=== PATIENT | female | born 2000 | race Caucasian/White ===

== ENCOUNTER 2022-07-16 21:56 | Emergency (ER) | payer SELFPAY ==
[~2022-07-16] VITALS: Ht 160 cm; Wt 80.7 kg
[2022-07-16] MEDS ORDERED: CELEXA10 MG PO (22:07)
[2022-07-16 23:49] LABS: BILIRUBIN Negative (Negative); BLOOD 2+ (Negative); CLARITY Clear (Clear); COLOR Yellow (Yellow); GLUCOSE Negative (Negative); KETONE Negative (Negative); LEUKO ESTERASE Negative (Negative); NITRITE Negative (Negative); SPECIFIC GRAVITY 1.025 (1.001-1.030)
[2022-07-16 23:51] LABS: BASO # 0.1 10*3/uL (0.0-0.1); BASO % 0.6 % (0.0-1.0); EOS # 0.4 10*3/uL (0.0-0.4); EOS % 3.5 % (1.0-4.0); HEMATOCRIT 39.5 % (37.0-47.0); LYMPH # 3.2 10*3/uL (1.3-4.4); LYMPH % 31.3 % (27.0-41.0); MEAN CELL VOLUME 77.8 fl (81.0-99.0); MEAN CORPUSCULAR HGB 24.4 pg (27.0-31.0); MEAN CORPUSCULAR HGB CONC 31.4 g/dl (33.0-37.0); MONO # 0.7 10*3/uL (0.1-1.0); MONO % 6.6 % (3.0-9.0); NEUT % 57.7 % (47.0-73.0); PLATELET COUNT AUTOMATED 266 10*3/uL (130-400); RED BLOOD COUNT 5.08 10*6/uL (4.10-5.10); RED CELL DISTRI WIDTH 15.2 % (0-14.5); WHITE BLOOD COUNT 10.3 10*3/uL (4.8-10.8)
[2022-07-17 00:02] LABS: BACTERIA 1+; MUCOUS 2+
[2022-07-17 00:06] LABS: ALKALINE PHOSPHATASE 76 U/L (45-117); BUN 15 mg/dl (7-24); CHLORIDE 104 mmol/L (98-107); CREATININE 0.75 mg/dL (0.55-1.02); POTASSIUM 3.8 mmol/L (3.5-5.1); SGOT/AST 11 IU/L (3-35); SGPT/ALT 15 U/L (12-78); SODIUM 135 mmol/L (136-145); TOTAL PROTEIN 7.7 gm/dL (6.4-8.2)
== END 2022-07-17 01:33 | disposition home or self-care (01) ==
LOC: ED 21:56
PROVIDERS: Emergency Medicine
DX: R00.0 Tachycardia, unspecified (principal); R51.9 Headache, unspecified; R00.2 Palpitations; Z91.040 Latex allergy status; Z79.899 Other long term (current) drug therapy

== ENCOUNTER 2022-08-26 13:20 | Emergency (ER) | payer SELFPAY ==
[~2022-08-26] VITALS: Ht 157.4 cm; Wt 81.6 kg
[~2022-08-26 13:20] MED LIST: CELEXA10 MG PO
== END 2022-08-26 15:14 | disposition home or self-care (01) ==
LOC: ED 13:20
DX: B34.9 Viral infection, unspecified (principal); Z20.822 Contact with and (suspected) exposure to COVID-19; Z79.899 Other long term (current) drug therapy

== ENCOUNTER 2022-10-21 20:29 | Emergency (ER) | payer SELFPAY ==
[~2022-10-21] VITALS: Ht 172.7 cm; Wt 77.1 kg
== END 2022-10-21 22:47 | disposition home or self-care (01) ==
LOC: ED 20:29
DX: L53.9 Erythematous condition, unspecified (principal); T78.1XXA Other adverse food reactions, not elsewhere classified, initial encounter; X58.XXXA Exposure to other specified factors, initial encounter; F41.9 Anxiety disorder, unspecified

== ENCOUNTER 2022-10-22 22:33 | Inpatient (IN) | payer SELFPAY ==
[~2022-10-22] VITALS: Ht 157.4 cm; Wt 82.6 kg
[2022-10-22 22:49] VITALS: BP 139/86
[2022-10-22 23:40] LABS: BASO # 0.1 10*3/uL (0.0-0.1); BASO % 0.5 % (0.0-1.0); EOS # 0.1 10*3/uL (0.0-0.4); EOS % 0.4 % (1.0-4.0); HEMATOCRIT 39.6 % (37.0-47.0); LYMPH # 4.4 10*3/uL (1.3-4.4); LYMPH % 30.7 % (27.0-41.0); MEAN CELL VOLUME 78.1 fl (81.0-99.0); MEAN CORPUSCULAR HGB 24.1 pg (27.0-31.0); MEAN CORPUSCULAR HGB CONC 30.8 g/dl (33.0-37.0); MEAN PLATELET VOLUME 12.4 fl (9.6-12.3); MONO # 1.1 10*3/uL (0.1-1.0); MONO % 7.8 % (3.0-9.0); NEUT # 8.5 10*3/uL (2.3-7.9); NEUT % 60.3 % (47.0-73.0); PLATELET COUNT AUTOMATED 282 10*3/uL (130-400); RED BLOOD COUNT 5.07 10*6/uL (4.10-5.10); WHITE BLOOD COUNT 14.2 10*3/uL (4.8-10.8)
[2022-10-22 23:54] LABS: ALKALINE PHOSPHATASE 66 U/L (46-116); BUN 16 mg/dl (9-23); CHLORIDE 105 mmol/L (98-107); POTASSIUM 3.5 mmol/L (3.4-5.1); SGPT/ALT 12 U/L (10-49); TOTAL PROTEIN 7.4 gm/dL (6.0-8.0)
[2022-10-23] VITALS (8 sets, daily range): BP systolic 113–150; BP diastolic 68–88
[2022-10-23 06:50] LABS: BILIRUBIN Negative (Negative); BLOOD Negative (Negative); CLARITY Clear (Clear); COLOR Yellow (Yellow); GLUCOSE Negative (Negative); KETONE Negative (Negative); LEUKO ESTERASE Negative (Negative); NITRITE Negative (Negative); SPECIFIC GRAVITY >= 1.030 (1.001-1.030); UROBILINOGEN 0.2 E.U./dl (0.0-1.0)
[2022-10-24] VITALS: BP 122/72
[2022-10-24 05:34] LABS: BUN 13 mg/dl (9-23); CHLORIDE 107 mmol/L (98-107); CHOLESTEROL 180 mg/dL (<200); FREE T4 1.11 ng/dl (0.89-1.76); LDL CHOLESTEROL 114 mg/dL (9-159); POTASSIUM 4.2 mmol/L (3.4-5.1); THYROID STIM HORMONE (HS) 0.391 uIU/ml (0.550-4.780); TRIGLYCERIDES 58 mg/dl (<150)
[2022-10-24 06:34] LABS: HEMATOCRIT 39.5 % (37.0-47.0); MEAN CORPUSCULAR HGB 24.3 pg (27.0-31.0); MEAN CORPUSCULAR HGB CONC 30.4 g/dl (33.0-37.0); PLATELET COUNT AUTOMATED 264 10*3/uL (130-400); RED BLOOD COUNT 4.94 10*6/uL (4.10-5.10); RED CELL DISTRI WIDTH 15.1 % (0-14.5); WHITE BLOOD COUNT 11.5 10*3/uL (4.8-10.8)
[2022-10-24 06:35] LABS: BASO % 0.1 % (0.0-1.0); LYMPH # 1.5 10*3/uL (1.3-4.4); LYMPH % 13.2 % (27.0-41.0); MEAN PLATELET VOLUME 13.9 fl (9.6-12.3); MONO # 0.4 10*3/uL (0.1-1.0); MONO % 3.4 % (3.0-9.0); NEUT # 9.5 10*3/uL (2.3-7.9); NEUT % 82.5 % (47.0-73.0)
[2022-10-24 07:58] VITALS: BP 122/62
[2022-10-24] MEDS ORDERED: EPIPEN 2-P0.3 MG/0.3 IJ (10:46)
[2022-10-24] MEDS ORDERED: PREDNISONE10 MG PO (10:46)
== END 2022-10-24 11:41 | disposition home or self-care (01) | DRG 872 ==
LOC: ED 22:33 → EDHOLD 10-23 07:30 → 4E 10-23 07:30
PROVIDERS: Emergency Medicine; Student in an Organized Health Care Education/Training Program; ADMIT Family Medicine; ATTEND Family Medicine
DX: A41.9 Sepsis, unspecified organism (principal); F41.9 Anxiety disorder, unspecified; E87.20 Acidosis, unspecified; T78.2XXD Anaphylactic shock, unspecified, subsequent encounter; Z91.018 Allergy to other foods

== ENCOUNTER 2022-11-26 13:34 | Emergency (ER) | payer MEDICAID ==
[~2022-11-26] VITALS: Ht 157.4 cm; Wt 79.4 kg
[~2022-11-26 13:34] MED LIST changes: +EPIPEN 2-P0.3 MG/0.3 IJ; +PREDNISONE10 MG PO
[2022-11-26] MEDS ORDERED: EPIPEN 2-P0.3 MG/0.3 IJ (14:15)
[2022-11-26] MEDS ORDERED: PREDNISONE10 MG PO (14:15)
== END 2022-11-26 14:52 | disposition home or self-care (01) ==
LOC: ED 13:34
DX: R06.02 Shortness of breath (principal); T44.5X5A Adverse effect of predominantly beta-adrenoreceptor agonists, initial encounter; Z91.018 Allergy to other foods; Z98.890 Other specified postprocedural states; F41.9 Anxiety disorder, unspecified; Y92.89 Other specified places as the place of occurrence of the external cause

== ENCOUNTER → 2022-12-13 | Outpatient (CLI) | payer MEDICAID ==
[2022-12-17 14:07] LABS: ALTERNARIA ALTERNATA, IGE <0.10 kU/L (Class 0); AMERICAN ELM, IGE <0.10 kU/L (Class 0); ASPERGILLUS FUMIGATU, IGE <0.10 kU/L (Class 0); BERMUDA GRASS, IGE <0.10 kU/L (Class 0); BIRCH, COMMON SILVER IGE <0.10 kU/L (Class 0); CLADOSPORIUM HERBARU, IGE <0.10 kU/L (Class 0); D FARINAE MITE <0.10 kU/L (Class 0); D PTERONYSSINUS <0.10 kU/L (Class 0); DOG DANDER, IGE <0.10 kU/L (Class 0); MAPLE LEAF SYCAMORE, IGE <0.10 kU/L (Class 0); MAPLE/BOX ELDER, IGE <0.10 kU/L (Class 0); MOUSE URINE IGE <0.10 kU/L (Class 0); PENICILLIUM CHRYSOGENUM, IGE <0.10 kU/L (Class 0); ROUGH PIGWEED, IGE <0.10 kU/L (Class 0); SHEEP SORREL (DOCK), IGE <0.10 kU/L (Class 0); SHORT RAGWEED, IGE <0.10 kU/L (Class 0); TIMOTHY, IGE <0.10 kU/L (Class 0); WALNUT TREE, IGE <0.10 kU/L (Class 0); WHITE ASH, IGE <0.10 kU/L (Class 0); WHITE MULBERRY, IGE <0.10 kU/L (Class 0); WHITE OAK, IGE <0.10 kU/L (Class 0)
== END | disposition home or self-care (01) ==
LOC: LAB 18:16
PROVIDERS: ATTEND Specialist
DX: J30.9 Allergic rhinitis, unspecified (principal); Z91.018 Allergy to other foods

== ENCOUNTER 2023-10-17 11:25 | Emergency (ER) | payer MEDICAID ==
[~2023-10-17] VITALS: Ht 157.4 cm; Wt 87.1 kg
[2023-10-17 12:22] LABS: BILIRUBIN Negative (Negative); BLOOD Negative (Negative); CLARITY Clear (Clear); COLOR Yellow (Yellow); GLUCOSE Negative (Negative); KETONE Negative (Negative); LEUKO ESTERASE 1+ (Negative); NITRITE Negative (Negative); UROBILINOGEN 0.2 E.U./dl (0.0-1.0)
[2023-10-17 12:29] LABS: BACTERIA TRACE; MUCOUS TRACE
[2023-10-17] MEDS ORDERED: Fosfomycin Tromethamine 3 GM PDS PO ONE (12:50)
== END 2023-10-17 13:34 | disposition home or self-care (01) ==
LOC: ED 11:25
PROVIDERS: Nurse Practitioner Family
DX: R51.9 Headache, unspecified (principal); R82.71 Bacteriuria; F41.9 Anxiety disorder, unspecified; Z91.018 Allergy to other foods; Z98.890 Other specified postprocedural states

== ENCOUNTER 2023-12-30 14:32 | Emergency (ER) | payer OTHER ==
[~2023-12-30] VITALS: Ht 160 cm; Wt 83.9 kg
[2023-12-30 15:10] LABS: BASO # 0.1 10*3/uL (0.0-0.1); BASO % 0.6 % (0.0-1.0); EOS # 0.3 10*3/uL (0.0-0.4); HEMATOCRIT 40.1 % (37.0-47.0); LYMPH # 2.3 10*3/uL (1.3-4.4); LYMPH % 22.4 % (27.0-41.0); MEAN CELL VOLUME 80.2 fl (81.0-99.0); MEAN CORPUSCULAR HGB 24.6 pg (27.0-31.0); MEAN CORPUSCULAR HGB CONC 30.7 g/dl (33.0-37.0); MEAN PLATELET VOLUME 12.9 fl (9.6-12.3); MONO # 0.6 10*3/uL (0.1-1.0); MONO % 5.6 % (3.0-9.0); NEUT # 6.9 10*3/uL (2.3-7.9); PLATELET COUNT AUTOMATED 249 10*3/uL (130-400); RED CELL DISTRI WIDTH 14.4 % (0-14.5); WHITE BLOOD COUNT 10.1 10*3/uL (4.8-10.8)
[2023-12-30 15:34] LABS: ALKALINE PHOSPHATASE 82 U/L (46-116); BUN 8 mg/dl (9-23); CHLORIDE 106 mmol/L (98-107); LIPASE 39 U/L (12-53); POTASSIUM 3.3 mmol/L (3.4-5.1); SGPT/ALT 10 U/L (5-49); TOTAL PROTEIN 7.7 gm/dL (6.0-8.0)
[2023-12-30] MEDS ORDERED: hydrOXYzine pamoate 25 MG CAP PO ONE (15:45)
[2023-12-30] MEDS ORDERED: POTASSIUM CHLORIDE 20 MEQ TAB PO ONE (15:45)
== END 2023-12-30 16:22 | disposition home or self-care (01) ==
LOC: ED 14:32
PROVIDERS: Internal Medicine
DX: F41.9 Anxiety disorder, unspecified (principal); Z91.018 Allergy to other foods; Z98.890 Other specified postprocedural states

== ENCOUNTER 2024-12-31 18:28 | Emergency (ER) | payer OTHER ==
[~2024-12-31] VITALS: Ht 160 cm; Wt 94.9 kg
[2024-12-31] MEDS ORDERED: IOHEXOL 300 MG/ML 100 ML VIAL IV ONE (19:40)
[2024-12-31] MEDS ORDERED: Ondansetron Hydrochloride 4 MG/2 ML VIAL IV ONE (19:40)
[2024-12-31] MEDS ORDERED: SODIUM CHLORIDE 0.9% 1,000 ML IV ONE (19:40)
[2024-12-31] MEDS ORDERED: MORPHINE Sulfate 2 MG/ML SYR IV ONE (19:40)
[2024-12-31 19:56] LABS: BASO % 0.3 % (0.0-1.0); EOS # 0.3 10*3/uL (0.0-0.4); EOS % 2.9 % (1.0-4.0); MEAN CELL VOLUME 78.8 fl (81.0-99.0); MEAN CORPUSCULAR HGB CONC 30.4 g/dl (33.0-37.0); MEAN PLATELET VOLUME 12.7 fl (9.6-12.3); MONO # 0.4 10*3/uL (0.1-1.0); MONO % 4.5 % (3.0-9.0); NEUT # 6.8 10*3/uL (2.3-7.9); NEUT % 70.7 % (47.0-73.0); PLATELET COUNT AUTOMATED 302 10*3/uL (130-400); RED BLOOD COUNT 5.71 10*6/uL (4.10-5.10); WHITE BLOOD COUNT 9.7 10*3/uL (4.8-10.8)
[2024-12-31 20:12] LABS: BILIRUBIN 2+ (Negative); BLOOD Trace-Lysed (Negative); CLARITY Cloudy (Clear); COLOR Dark Yellow (Yellow); GLUCOSE Negative (Negative); KETONE Trace (Negative); LEUKO ESTERASE Trace (Negative); NITRITE Negative (Negative); SPECIFIC GRAVITY >= 1.030 (1.001-1.030)
[2024-12-31 20:28] LABS: BACTERIA 1+; CALCIUM OXALATE CRYSTALS 1+; MUCOUS 1+
[2024-12-31 20:34] LABS: ALKALINE PHOSPHATASE 97 U/L (46-116); BUN 15 mg/dl (9-23); CHLORIDE 103 mmol/L (98-107); LIPASE 32 U/L (12-53); POTASSIUM 3.9 mmol/L (3.4-5.1); SGPT/ALT 17 U/L (5-49); TOTAL PROTEIN 7.8 gm/dL (6.0-8.0)
[2024-12-31] MEDS ORDERED: CIPRO500 MG PO (21:23)
[2024-12-31] MEDS ORDERED: PYRIDIUM100 MG PO (21:23)
[2024-12-31] MEDS ORDERED: Ciprofloxacin Hydrochloride 500 MG TAB PO ONE (21:25)
== END 2024-12-31 21:36 | disposition home or self-care (01) ==
LOC: ED 18:28
PROVIDERS: Internal Medicine
DX: N39.0 Urinary tract infection, site not specified (principal); R11.2 Nausea with vomiting, unspecified; Z91.018 Allergy to other foods; Z79.899 Other long term (current) drug therapy; Z98.890 Other specified postprocedural states